=== PATIENT | male | born 1960 | race Caucasian/White ===

== ENCOUNTER 2017-05-14 05:30 | Inpatient (IN) | payer MEDICAID ==
[2017-05-14] VITALS (66 sets, daily range): BP systolic 59–132; BP diastolic 21–88
[~2017-05-14] VITALS: Ht 167.6 cm; Wt 73.5 kg
[2017-05-14 06:32] LABS: CLARITY URINE CLEAR (CLEAR); COLOR URINE YELLOW (YELLOW); GLUCOSE URINE NEGATIVE (NEGATIVE); KETONES URINE NEGATIVE (NEGATIVE); LEUKOCYTE ESTERASE URINE NEGATIVE (NEGATIVE); NITRITE URINE NEGATIVE (NEGATIVE); OCCULT BLOOD URINE NEGATIVE (NEGATIVE); PH URINE 6.5 (4.5-8.0); PROTEIN URINE NEGATIVE (NEGATIVE); SPECIFIC GRAVITY URINE 1.009 (1.005-1.030); UROBILINOGEN URINE 0.2 E.U./dL (0.2-1.0)
[2017-05-14 06:34] LABS: BASOPHILS % 0.7 % (0.0-2.0); EOSINOPHILS % 3.6 % (0.0-5.0); HEMATOCRIT. 42.3 % (42.0-52.0); HEMOGLOBIN. 14.6 g/dL (14.0-18.0); LYMPHOCYTES % 41.7 % (20.0-50.0); MEAN CORPUSCULAR HEMOGLOBIN 34.5 pg (28.0-32.0); MEAN CORPUSCULAR VOLUME 100.2 fL (80.0-94.0); MEAN PLATELET VOLUME 7.5 fl (7.4-10.4); PLATELET 265 x1000/uL (130-400); RED BLOOD CELL COUNT 4.22 mill/uL (4.7-6.1); RED CELL DISTRIBUTION WIDTH 14.8 % (11.6-14.6)
[2017-05-14] MEDS ORDERED: BACITRACIN ZINC 15GM TUBE TOP ONE (06:36)
[2017-05-14] MEDS ORDERED: GELATIN SPONGE,ABSORBABLE SZ 100 ONE (06:36)
[2017-05-14] MEDS ORDERED: LIDOCAINE HCL 1%/EPI 1:200,000 30 ML VIAL ONE (06:36)
[2017-05-14] MEDS ORDERED: BACITRACIN 50,000 UNITS/VIAL ONE (06:37)
[2017-05-14] MEDS ORDERED: NORMAL SALINE 0.9% 10 ML SYR ONE (06:37)
[2017-05-14] MEDS ORDERED: THROMBIN (BOVINE) 5000 UNITS/VIAL TOP ONE (06:37)
[2017-05-14 06:39] LABS: PARTIAL THROMBOPLASTIN TIME 26.4 sec (23.4-31.0); PROTHROMBIN TIME 10.5 sec (9.4-11.6)
[2017-05-14 06:40] LABS: CARBON DIOXIDE 27 mEq/L (21-32); CHLORIDE 105 mEq/L (98-107)
[2017-05-14] MEDS ORDERED: LACTATED RINGERS 1,000 ML IV SCH (07:00)
[2017-05-14] MEDS ORDERED: IPRATROPIUM/ALBUTEROL 0.5-3(2.5)MG/3ML NEB INH PRN (07:30)
[2017-05-14] MEDS ORDERED: DIPHENHYDRAMINE 50MG/ML VIAL IV PRN (07:30)
[2017-05-14] MEDS ORDERED: ACETAMINOPHEN 325MG TABLET PO PRN (07:30)
[2017-05-14] MEDS ORDERED: NICARDIPINE 100 MG in SODIUM CHLORIDE 0.9% 60 ML IV PRN (07:30)
[2017-05-14] MEDS ORDERED: ONDANSETRON HCL 4MG/2ML VIAL IV PRN ×2 (07:30→10:15)
[2017-05-14] MEDS ORDERED: ROCURONIUM BROMIDE 10MG/ML VIAL 5ML IV ONE ×2 (07:57→09:20)
[2017-05-14] MEDS ORDERED: DEXAMETHASONE 4MG/ML 1ML VIAL ONE (07:57)
[2017-05-14] MEDS ORDERED: EPHEDRINE SULFATE 50MG/ML VIAL ONE (07:57)
[2017-05-14] MEDS ORDERED: ALBUMIN HUMAN 12.5G/250ML (5%) IV ONE (08:10)
[2017-05-14] MEDS ORDERED: IBUP-1636 PO (08:36)
[2017-05-14] MEDS ORDERED: ASPI-1159 PO (08:36)
[2017-05-14] MEDS ORDERED: HYDR-3281 PO (08:36)
[2017-05-14] MEDS ORDERED: NICO-645 TD (08:37)
[2017-05-14] MEDS ORDERED: GLYCOPYRROLATE 0.2 MG/ML 2ML VIAL ONE (10:13)
[2017-05-14] MEDS ORDERED: NEOSTIGMINE METHYLSULFATE 1MG/ML 10 ML VIAL ONE (10:13)
[2017-05-14] MEDS ORDERED: LABETALOL HCL 20MG/4ML CARPUJECT IV PRN (10:15)
[2017-05-14] MEDS ORDERED: HYDROMORPHONE HCL/PF 2MG/ML CPJ IV PRN (10:15)
[2017-05-14] MEDS ORDERED: MEPERIDINE HCL/PF 25MG/ML CPJ IV PRN (10:15)
[2017-05-14] MEDS ORDERED: ALBUMIN HUMAN 25GM/500ML (5%) IV SCH (11:15)
[2017-05-14] MEDS ORDERED: NOREPINEPHRINE 4 MG in DEXT 5% WATER 246 ML IV PRN (11:30)
[2017-05-14] MEDS: DEXT 5%/LACTATED RINGERS 1,000 ML IV SCH ×2 (11:39→18:03)
[2017-05-14] MEDS: CEFAZOLIN 1000MG PREMIX 50 ML IV SCH ×2 (12:20→20:09)
[2017-05-14] MEDS ORDERED: DIPHENHYDRAMINE INJ IV PRN (12:45)
[2017-05-14] MEDS ORDERED: ONDANSETRON INJ IV PRN (12:45)
[2017-05-14] MEDS ORDERED: NALOXONE INJ IV PRN (12:45)
[2017-05-14] MEDS: HYDROMORPHONE PCA 10MG/50ML IV PRN (12:56)
[2017-05-14] MEDS ORDERED: CEFAZOLIN SODIUM 1000MG/VIAL IV SCH (14:00)
[2017-05-14] MEDS ORDERED: PANTOPRAZOLE SODIUM 40 MG/VIAL IV NR (17:45)
[2017-05-14] MEDS ORDERED: BISACODYL 5MG TABLET PO PRN (17:45)
[2017-05-14] MEDS ORDERED: NICOTINE 21MG PATCH TD NR (20:00)
[2017-05-15] VITALS (56 sets, daily range): BP systolic 90–130; BP diastolic 41–87
[2017-05-15] MEDS: HYDROMORPHONE PCA 10MG/50ML IV PRN ×3 (00:39→20:28)
[2017-05-15] MEDS: DEXT 5%/LACTATED RINGERS 1,000 ML IV SCH ×2 (01:25→08:22)
[2017-05-15] MEDS: HYDROCODONE/ACETAMINOPHEN 10/325MG TABLET PO PRN ×3 (01:25→22:11)
[2017-05-15] MEDS: CEFAZOLIN 1000MG PREMIX 50 ML IV SCH (03:07)
[2017-05-15] MEDS: PANTOPRAZOLE SODIUM 40 MG/VIAL IV SCH (08:07)
[2017-05-15] MEDS: DOCUSATE SODIUM 100MG CAPSULE PO SCH ×3 (08:07→17:22)
[2017-05-15] MEDS: NICOTINE 21MG PATCH TD SCH (08:51)
[2017-05-16] VITALS: BP 102/65
[2017-05-16 04:00] VITALS: BP 107/63
[2017-05-16 08:00] VITALS: BP 108/63
[2017-05-16] MEDS: PANTOPRAZOLE SODIUM 40 MG/VIAL IV SCH (08:45)
[2017-05-16] MEDS: DOCUSATE SODIUM 100MG CAPSULE PO SCH ×2 (08:45→16:15)
[2017-05-16] MEDS: NICOTINE 21MG PATCH TD SCH (08:57)
[2017-05-16] MEDS: HYDROMORPHONE PCA 10MG/50ML IV PRN ×2 (09:00→20:09)
[2017-05-16] MEDS: HYDROCODONE/ACETAMINOPHEN 10/325MG TABLET PO PRN ×2 (09:20→16:51)
[2017-05-16 12:00] VITALS: BP 106/58
[2017-05-16] MEDS ORDERED: BISACODYL 5MG TABLET PO NR (12:00)
[2017-05-16 16:00] VITALS: BP 100/57
[2017-05-16 20:00] VITALS: BP 104/59
[2017-05-17] VITALS: BP 97/61
[2017-05-17 04:00] VITALS: BP 100/61
[2017-05-17] MEDS ORDERED: MORPHINE SULFATE 2 MG/ML CPJ (NOT FOR IM USE) IV PRN (06:30)
[2017-05-17 08:00] VITALS: BP 106/68
[2017-05-17] MEDS: DOCUSATE SODIUM 100MG CAPSULE PO SCH ×2 (08:58→18:02)
[2017-05-17] MEDS: PANTOPRAZOLE SODIUM 40 MG/VIAL IV SCH (08:58)
[2017-05-17] MEDS: NICOTINE 21MG PATCH TD SCH (08:58)
[2017-05-17] MEDS: MORPHINE SULFATE 10 MG/ML CPJ IV PRN ×2 (10:52→21:51)
[2017-05-17 12:00] VITALS: BP 98/65
[2017-05-17] MEDS: HYDROCODONE/ACETAMINOPHEN 10/325MG TABLET PO PRN ×2 (14:36→19:07)
[2017-05-17 16:00] VITALS: BP 107/72
[2017-05-17 20:00] VITALS: BP 106/73
[2017-05-18] VITALS: BP 111/58
[2017-05-18 02:00] VITALS: BP 99/56
[2017-05-18] MEDS: MORPHINE SULFATE 10 MG/ML CPJ IV PRN (02:12)
[2017-05-18 08:00] VITALS: BP 104/62
[2017-05-18] MEDS: DOCUSATE SODIUM 100MG CAPSULE PO SCH (08:00)
[2017-05-18] MEDS: NICOTINE 21MG PATCH TD SCH (08:00)
[2017-05-18] MEDS ORDERED: FAMOTIDINE 20MG/2ML VIAL IV SCH (09:00)
[2017-05-18] MEDS: HYDROCODONE/ACETAMINOPHEN 10/325MG TABLET PO PRN (09:02)
[2017-05-18 12:00] VITALS: BP 96/71
[2017-05-18 12:24] VITALS: BP 96/71
== END 2017-05-18 13:50 | disposition home or self-care (01) | DRG 304 ==
LOC: OR 05:30 → MICUNO 11:09 → 6EST 05-15 21:20
PROVIDERS: ADMIT Internal Medicine Critical Care Medicine; ATTEND Internal Medicine Critical Care Medicine
PROC: 0SG30J1 Fusion of Lumbosacral Joint with Synthetic Substitute, Posterior Approach, Posterior Column, Open Approach (ICD-10-PCS; principal; 2017-05-14 07:00)
DX: M43.17 Spondylolisthesis, lumbosacral region (principal); G82.20 Paraplegia, unspecified; M48.061 Spinal stenosis, lumbar region without neurogenic claudication; G62.9 Polyneuropathy, unspecified; F17.210 Nicotine dependence, cigarettes, uncomplicated; Z90.49 Acquired absence of other specified parts of digestive tract
CPT/HCPCS: 36415; 71020; 72100; 80048; 81003; 85025; 85610; 85730; 86850; 86900; 93005; 93970; 95863; 95925; 95926; 97116; 97162; 97530; A4216; C1713; C1893; C9113; J0171; J0690; J1100; J1170; J2270; J2405; J2710; J3490; J7030; J7050; J7060; J7120; J7121; P9041

== ENCOUNTER 2017-11-13 04:05 | Emergency (ER) | payer MEDICAID ==
[~2017-11-13] VITALS: Ht 167.6 cm; Wt 64.2 kg
[~2017-11-13 04:05] MED LIST: HYDR-3281 PO; IBUP-1653 PO; NICO-645 TD
[2017-11-13] MEDS ORDERED: HYDROCODONE/ACETAMINOPHEN 5/325MG TABLET PO ONE (07:00)
[2017-11-13 11:18] VITALS: BP 128/91
== END 2017-11-13 11:39 | disposition home or self-care (01) ==
LOC: ER 04:05
DX: S00.83XA Contusion of other part of head, initial encounter (principal); M54.2 Cervicalgia; G89.29 Other chronic pain; M47.892 Other spondylosis, cervical region; F17.200 Nicotine dependence, unspecified, uncomplicated; W01.0XXA Fall on same level from slipping, tripping and stumbling without subsequent striking against object, initial encounter; Y93.89 Activity, other specified; Y92.480 Sidewalk as the place of occurrence of the external cause
CPT/HCPCS: 70160; 72040; 99284

== ENCOUNTER 2018-05-27 05:52 | Inpatient (IN) | payer MEDICAID ==
[2018-05-27] VITALS (34 sets, daily range): BP systolic 89–130; BP diastolic 43–94
[~2018-05-27] VITALS: Ht 165.1 cm; Wt 69.2 kg
[2018-05-27 07:42] LABS: INR 1.1; PARTIAL THROMBOPLASTIN TIME 30.8 sec (23.4-31.0); PROTHROMBIN TIME 10.7 sec (9.1-11.1)
[2018-05-27] MEDS ORDERED: LACTATED RINGERS 1,000 ML IV SCH (08:15)
[2018-05-27] MEDS ORDERED: GELATIN SPONGE,ABSORBABLE 12-7MM SPONGE ONE ×2 (08:17→10:42)
[2018-05-27] MEDS ORDERED: BACITRACIN 50,000 UNITS/VIAL ONE (08:18)
[2018-05-27] MEDS ORDERED: LIDOCAINE HCL/EPINEPHRINE 1%-EPI 1:100,000 20 ML VIAL ONE (08:18)
[2018-05-27] MEDS ORDERED: THROMBIN (BOVINE) 5000 UNITS/VIAL TOP ONE (08:18)
[2018-05-27] MEDS ORDERED: NORMAL SALINE 0.9% 10 ML SYR ONE (08:18)
[2018-05-27] MEDS ORDERED: TRAM50TA3 PO (08:19)
[2018-05-27] MEDS ORDERED: GABA-531 PO (08:19)
[2018-05-27] MEDS ORDERED: PROPOFOL 200MG/20ML VIAL IV ONE (09:47)
[2018-05-27] MEDS ORDERED: ROCURONIUM BROMIDE 10MG/ML VIAL 5ML IV ONE ×2 (09:47→15:07)
[2018-05-27] MEDS ORDERED: FENTANYL CITRATE/PF 50MCG/ML 2ML VIAL ONE (09:47)
[2018-05-27] MEDS ORDERED: GLYCOPYRROLATE 0.2 MG/ML 2ML VIAL ONE (09:47)
[2018-05-27] MEDS ORDERED: NEOSTIGMINE METHYLSULFATE 1MG/ML 10 ML VIAL ONE (09:47)
[2018-05-27] MEDS ORDERED: MIDAZOLAM HCL 2 MG/2 ML VIAL ONE (09:47)
[2018-05-27] MEDS ORDERED: ONDANSETRON HCL 4MG/2ML INJ ONE (09:50)
[2018-05-27] MEDS ORDERED: CEFAZOLIN SODIUM 1000MG/VIAL ONE (09:50)
[2018-05-27] MEDS ORDERED: METOCLOPRAMIDE HCL 10MG/2ML VIAL ONE (09:50)
[2018-05-27] MEDS ORDERED: DEXAMETHASONE 4MG/ML 1ML VIAL ONE (10:45)
[2018-05-27] MEDS ORDERED: ONDANSETRON HCL 4MG/2ML INJ IV PRN ×2 (11:00→11:45)
[2018-05-27] MEDS ORDERED: NICARDIPINE 40MG/200ML PREMIX 200 ML IV PRN (11:00)
[2018-05-27] MEDS ORDERED: PROPOFOL 10MG/ML 100ML 100 ML IV ONE (11:04)
[2018-05-27] MEDS ORDERED: HYDROMORPHONE HCL/PF 2MG/ML CPJ IV PRN (11:45)
[2018-05-27] MEDS ORDERED: MEPERIDINE HCL/PF 25MG/ML CPJ IV PRN (11:45)
[2018-05-27] MEDS ORDERED: FENTANYL CITRATE/PF 50MCG/ML 2ML VIAL IV PRN (11:45)
[2018-05-27] MEDS ORDERED: MORPHINE SULFATE 4 MG/ML CPJ (NOT FOR IM USE) IV PRN (11:45)
[2018-05-27] MEDS ORDERED: FLUMAZENIL 0.1 MG/ML 5ML VIAL IV ONE (12:28)
[2018-05-27] MEDS ORDERED: KETOROLAC 30MG/ML VIAL ONE (12:31)
[2018-05-27] MEDS ORDERED: NITROPRUSSIDE 50 MG in SODIUM CHLORIDE 0.9% 248 ML IV PRN (13:00)
[2018-05-27] MEDS ORDERED: NALOXONE INJ IV PRN (13:15)
[2018-05-27] MEDS ORDERED: ONDANSETRON INJ IV PRN (13:15)
[2018-05-27] MEDS: DEXAMETHASONE 4MG/ML 1ML VIAL IV SCH ×2 (13:29→18:13)
[2018-05-27] MEDS: MORPHINE SULFATE 4 MG/ML CPJ (NOT FOR IM USE) IV PRN (13:29)
[2018-05-27] MEDS: DEXT 5%/LACTATED RINGERS 1,000 ML IV SCH ×2 (13:29→21:08)
[2018-05-27] MEDS: MORPHINE PCA 50MG/50ML IV PRN (13:35)
[2018-05-27] MEDS ORDERED: CEFAZOLIN SODIUM 1000MG/VIAL IV SCH (14:00)
[2018-05-27] MEDS: CEFAZOLIN 1000MG PREMIX 50 ML IV SCH ×2 (14:33→21:08)
[2018-05-27] MEDS ORDERED: BISACODYL 5MG TABLET PO PRN (16:15)
[2018-05-27] MEDS ORDERED: IPRATROPIUM/ALBUTEROL 0.5-3(2.5)MG/3ML NEB HHN PRN (16:15)
[2018-05-27] MEDS: DOCUSATE SODIUM 100MG CAPSULE PO SCH (17:00)
[2018-05-27] MEDS: NICOTINE 14MG PATCH TD SCH (18:13)
[2018-05-27] MEDS: IPRATROPIUM/ALBUTEROL 0.5-3(2.5)MG/3ML NEB HHN SCH (21:04)
[2018-05-28] VITALS (24 sets, daily range): BP systolic 93–140; BP diastolic 51–117
[2018-05-28] MEDS: DEXAMETHASONE 4MG/ML 1ML VIAL IV SCH ×5 (00:01→23:31)
[2018-05-28] MEDS: IPRATROPIUM/ALBUTEROL 0.5-3(2.5)MG/3ML NEB HHN SCH ×2 (01:44→15:28)
[2018-05-28] MEDS: MORPHINE PCA 50MG/50ML IV PRN (03:49)
[2018-05-28] MEDS: CEFAZOLIN 1000MG PREMIX 50 ML IV SCH ×3 (05:03→23:31)
[2018-05-28 05:40] LABS: HEMOGLOBIN. 14.2 g/dL (14.0-18.0); MEAN CORPUSCULAR HEMOGLOBIN 32.4 pg (28.0-32.0); MEAN CORPUSCULAR VOLUME 95.7 fL (80.0-94.0); MEAN PLATELET VOLUME 8.1 fl (7.4-10.4); PLATELET 263 x1000/uL (130-400); RED BLOOD CELL COUNT 4.39 mill/uL (4.7-6.1); RED CELL DISTRIBUTION WIDTH 12.9 % (11.6-14.6)
[2018-05-28 06:07] LABS: CHLORIDE 105 mEq/L (98-107)
[2018-05-28 06:21] LABS: HDL CHOLESTEROL 43 mg/dL (40-59); LDL CHOLESTEROL 165 mg/dL (5-100); PHOSPHORUS 3.6 mg/dL (2.5-4.9)
[2018-05-28 06:24] LABS: ATYPICAL LYMPHOCYTES 1; PLATELET ESTIMATE NORMAL
[2018-05-28] MEDS ORDERED: PANTOPRAZOLE SODIUM 40 MG/VIAL IV SCH (09:00)
[2018-05-28] MEDS ORDERED: INFLUENZA VIRUS VACCINE(AFLURIA) 0.5ML SYR IM ONE (09:00)
[2018-05-28] MEDS ORDERED: PNEUMOCOCCAL 23-VAL P-SAC VAC 0.5 ML IM ONE (09:00)
[2018-05-28] MEDS: DOCUSATE SODIUM 100MG CAPSULE PO SCH ×2 (09:09→16:53)
[2018-05-28] MEDS: NICOTINE 14MG PATCH TD SCH (09:10)
[2018-05-28] MEDS: DEXT 5%/LACTATED RINGERS 1,000 ML IV SCH ×3 (11:45→23:31)
[2018-05-28] MEDS: DIPHENHYDRAMINE INJ IV PRN ×2 (17:06→23:31)
[2018-05-28] MEDS ORDERED: ATORVASTATIN CALCIUM 20MG TABLET PO SCH (21:00)
[2018-05-29] VITALS: BP 117/63
[2018-05-29] MEDS: IPRATROPIUM/ALBUTEROL 0.5-3(2.5)MG/3ML NEB HHN SCH ×3 (02:45→13:15)
[2018-05-29 04:00] VITALS: BP 105/72
[2018-05-29] MEDS: DEXAMETHASONE 4MG/ML 1ML VIAL IV SCH ×3 (06:31→17:13)
[2018-05-29 06:56] LABS: BASOPHILS % 0.1 % (0.0-2.0); HEMATOCRIT. 40.3 % (42.0-52.0); HEMOGLOBIN. 13.6 g/dL (14.0-18.0); LYMPHOCYTES % 10.6 % (20.0-50.0); MEAN CORPUSCULAR HEMOGLOBIN 32.2 pg (28.0-32.0); MEAN CORPUSCULAR VOLUME 95.4 fL (80.0-94.0); NEUTROPHILS % 83.3 % (40.0-76.0); PLATELET 243 x1000/uL (130-400); RED BLOOD CELL COUNT 4.23 mill/uL (4.7-6.1); RED CELL DISTRIBUTION WIDTH 12.9 % (11.6-14.6)
[2018-05-29] MEDS: CEFAZOLIN 1000MG PREMIX 50 ML IV SCH (07:01)
[2018-05-29 07:43] LABS: CHLORIDE 102 mEq/L (98-107)
[2018-05-29 08:00] VITALS: BP 109/79
[2018-05-29] MEDS: DOCUSATE SODIUM 100MG CAPSULE PO SCH ×2 (08:48→16:58)
[2018-05-29] MEDS: DIPHENHYDRAMINE INJ IV PRN (08:48)
[2018-05-29] MEDS: NICOTINE 14MG PATCH TD SCH (08:52)
[2018-05-29] MEDS: DEXT 5%/LACTATED RINGERS 1,000 ML IV SCH (10:58)
[2018-05-29 12:15] VITALS: BP 118/79
[2018-05-29] MEDS: MORPHINE SULFATE 4 MG/ML CPJ (NOT FOR IM USE) IV PRN (13:34)
[2018-05-29 15:37] LABS: CLARITY URINE CLEAR (CLEAR); COLOR URINE YELLOW (YELLOW); KETONES URINE NEGATIVE (NEGATIVE); LEUKOCYTE ESTERASE URINE 1+ (NEGATIVE); NITRITE URINE NEGATIVE (NEGATIVE); OCCULT BLOOD URINE 2+ (NEGATIVE); PROTEIN URINE NEGATIVE (NEGATIVE); SPECIFIC GRAVITY URINE 1.015 (1.005-1.030); UROBILINOGEN URINE 0.2 E.U./dL (0.2-1.0)
[2018-05-29 16:00] VITALS: BP 119/75
[2018-05-29] MEDS ORDERED: ATOR20TA PO (16:18)
[2018-05-29] MEDS ORDERED: HYDR-4001 MT (16:18)
[2018-05-29 19:51] VITALS: BP 134/78
== END 2018-05-29 20:45 | disposition home or self-care (01) | DRG 321 ==
LOC: OR 05:52 → MICUNO 05:53 → 6EST 05-28 14:13
PROVIDERS: ADMIT Internal Medicine; ATTEND Internal Medicine
PROC: 0RB30ZZ Excision of Cervical Vertebral Disc, Open Approach (ICD-10-PCS; 2018-05-27)
PROC: 0RG10K0 Fusion of Cervical Vertebral Joint with Nonautologous Tissue Substitute, Anterior Approach, Anterior Column, Open Approach (ICD-10-PCS; principal; 2018-05-27 10:30)
DX: M47.12 Other spondylosis with myelopathy, cervical region (principal); G82.50 Quadriplegia, unspecified; G62.9 Polyneuropathy, unspecified; R65.10 Systemic inflammatory response syndrome (SIRS) of non-infectious origin without acute organ dysfunction; M47.22 Other spondylosis with radiculopathy, cervical region; M48.02 Spinal stenosis, cervical region; M43.12 Spondylolisthesis, cervical region; E78.5 Hyperlipidemia, unspecified; F17.210 Nicotine dependence, cigarettes, uncomplicated; Z90.49 Acquired absence of other specified parts of digestive tract; Z98.1 Arthrodesis status; Z79.82 Long term (current) use of aspirin; Z79.899 Other long term (current) drug therapy; Z56.0 Unemployment, unspecified
CPT/HCPCS: 36415; 72040; 72141; 80048; 80061; 80076; 83036; 83735; 84100; 84132; 84443; 86850; 86900; 90686; 90732; 94640; 95925; 95926; 95928; 97116; 97162; A4216; C1713; C9113; J0690; J1100; J1200; J1885; J2250; J2270; J2405; J2704; J2710; J2765; J3010; J3490; J7050; J7120; J7121; J7620